=== PATIENT | female | born 1940 | race Caucasian/White ===

== ENCOUNTER 2021-12-30 11:50 | Emergency (ER) | payer MEDICARE, SELFPAY ==
[2021-12-30] VITALS (10 sets, daily range): BP systolic 127–185; BP diastolic 63–99; PULSE 75–82; RESP 14–24; TEMP 37.1; O2SAT 94–99
--- NOTE | 2021-12-30 12:42 | DI.US.S_ITS ---
PROCEDURE: US PERIPH VENOUS LOW EXTREM RT INDICATIONS: PAIN TECHNIQUE: Real-time imaging, as well as color and pulse Doppler interrogation, were performed of the lower extremity deep veins from the inguinal ligament to the popliteal fossa. COMPARISON: None. FINDINGS: Occlusive intraluminal filling defects are noted in right common femoral vein, proximal greater saphenous vein, superficial femoral vein and popliteal vein is seen with absence of flow and poor compressibility. IMPRESSION: Finding is consistent with extensive occlusive deep venous thrombosis throughout visualized right lower extremity veins. Dictated by: Haja Costa M.D. on 12/30/2021 at 12:49 Approved by: Haja Costa M.D. on 12/30/2021 at 12:50
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
[2021-12-30 14:22] LABS: Add Manual Diff / Slide Review NO; Basophils Absolute Auto 100 /uL (0-100); Basophils Percent Auto 0.8 % (0-2); Eosinophils Absolute Auto 100 /uL (0-450); Eosinophils Percent Auto 0.9 % (2-4); Hematocrit 43.7 % (36-46); Lymphocytes Absolute Auto 1300 /uL (1100-4500); Lymphocytes Percent Auto 12.1 % (25-40); Mean Corpuscular Hemoglobin 26.4 PG (26-34); Mean Corpuscular Volume 82.6 fL (80-100); Monocytes Absolute Auto 800 /uL (0-900); Neutrophils Absolute Auto 8200 /uL (1500-7000); Neutrophils Percent Auto 78.2 % (50-75); Platelet Count 244 X10^3/uL (150-400); Red Blood Cell Count 5.29 X10^6/uL (4.0-5.2); Red Cell Distribution Width 13.5 % (11.6-14.8); White Blood Cell Count 10.5 X10^3/uL (4.5-11.0)
[2021-12-30 14:59] LABS: INR 1.1 (0.9-1.3); Prothrombin Time 12.6 SECONDS (10.1-12.7)
[2021-12-30 15:02] LABS: PTT Partial Thromboplastin Tim 34 SECONDS (26.4-36.2)
[2021-12-30 15:06] LABS: Alanine Aminotransferase 11 IU/L (<35); Albumin 3.7 g/dL (3.5-5.0); Albumin Globulin Ratio 1.1 (1.0-2.8); Alkaline Phosphatase 83 U/L (38-126); Aspartate Aminotransferase 23 IU/L (14-36); BUN Creatinine Ratio 18.4 (6-22); Bilirubin Total 0.7 mg/dL (0.2-1.3); Blood Urea Nitrogen 14 mg/dL (7-17); Carbon Dioxide 29 mmol/L (22-32); Chloride 103 mmol/L (98-107); Estimated Glomerular Filt Rate > 60.0 mL/min (>60); Globulin 3.3 g/dL (1.7-4.1); Glucose 89 mg/dL (80-110); HEMOLYSIS < 15 (0-50); Potassium 4.2 mmol/L (3.4-5.1); Sodium 136 mmol/L (137-145)
--- NOTE | 2021-12-30 15:12 | DI.CT.S_ITS ---
PROCEDURE: CT ANGIO CHEST PE PROTOCOL INDICATIONS: blood clot in leg, sob, ekg changes TECHNIQUE: After the administration of intravenous contrast, 2 mm thick sections acquired from the pulmonary apices to the posterior costophrenic angles. 3-dimensional maximum intensity projection (MIP) coronal and sagittal reformats were then acquired through the thorax. For radiation dose reduction, the following was used: automated exposure control, adjustment of mA and/or kV according to patient size. COMPARISON: CR, CHEST 2 VIEW, 03/30/2014, 12:27. [facility], , PERIPH VENOUS LOW EXTREM RT, 12/30/2021, 12:30. FINDINGS: Image quality: Excellent. Pulmonary arteries: Pulmonary arteries are normal in size, and demonstrate no intraluminal filling defects to suggest central pulmonary embolism. Lungs and pleura: There are irregular nodular opacities in right middle lobe and lingula. There are small lung bilaterally nodules. Nodule 1: 3 mm; right lower lobe; series 5 image 111. Nodule 2: 1 mm; left lower lobe; series 5, image 179. Bochdalek hernias in posterior hemidiaphragm with bilaterally. No pleural effusions or pneumothorax. Central and peripheral airways are patent. Mediastinum: Heart size is normal, without pericardial effusion. Mild coronary artery calcification. No mediastinal or hilar adenopathy. 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 Esophagus is normal in caliber. Small hiatal hernia. Bones and chest wall: No suspicious bony lesions. Ribs and thoracic spine appear intact throughout. Thyroid gland is normal. No axillary or supraclavicular adenopathy. Abdomen: Visualized upper abdominal solid organs appear normal in the early arterial phase of enhancement. IMPRESSION: 1. No evidence for pulmonary embolism. 2. Irregular nodular densities in right middle lobe and lingula, most likely infectious or inflammatory etiology. Recommend follow-up to resolution. 3. Small lung nodules bilaterally. Please see below for follow-up recommendations. 4. Type 2 dissection of aorta. 5. Mild coronary artery calcification. The result was discussed with Dr. Taylor. Fleischner Society criteria for SOLID lung nodule followup. Nodule size (mm)Low-risk patientHigh-risk patient?4No follow-up neededFollow-up at 12 mo; if no change, no further follow-up>[id number] CT at 12 mo; if no change, no further follow-up needed.Initial follow-up CT at 6-12 mo, then 18-24 mo if no change. >6-8Initial follow-up CT at 6-12 mo, then 18-24 mo if no change. Initial follow-up CT at 3-6 mo, then 9-12 mo and 24 mo if no change. >8Follow-up CT at 3, 9, 24 mo. Or PET and/or biopsy.Same as for low-risk pts. Dictated by: Tali Gómez M.D. on 12/30/2021 at 16:23 Approved by: Tali Gómez M.D. on 12/30/2021 at 16:45
--- NOTE | 2021-12-30 15:12 | DI.CT.S_ITS ---
PROCEDURE: CT ABDOMEN PELVIS W CON INDICATIONS: Right-sided deep venous thrombosis TECHNIQUE: After the administration of intravenous contrast, axial sections acquired from the lung bases to the pubic symphysis. Coronal and sagittal reformats were performed. For radiation dose reduction, the following was used: automated exposure control, adjustment of mA and/or kV according to patient size. COMPARISON: None. FINDINGS: Image quality: Excellent. Lung bases: Pulmonary scarring noted at both lung bases Heart: No significant findings. ABDOMEN: Liver: Unremarkable. Gallbladder: Several stones noted in the lumen the gallbladder without CT evidence of acute cholecystitis. Biliary ducts: Unremarkable. Pancreas: Unremarkable. Spleen: Unremarkable. Adrenal Glands: Unremarkable. Kidneys and Ureters: Unremarkable. Stomach and Bowel: Stomach, small bowel loops, and colon are unremarkable. Peritoneum: Multiple diverticula arise from the sigmoid and descending colon without evidence of diverticulitis. Moderate fecal debris present throughout the colon. Ventral Wall: No hernias. Abdominal Nodes: No retroperitoneal or mesenteric adenopathy by size criteria. Vessels: There is occlusion of the right common femoral vein extending into the external iliac vein with reconstitution at the common iliac vein. Dense aortic atherosclerotic plaque with calcification noted as well. No aneurysm. Left sided vasculature is patent. PELVIS: Pelvic Organs: Unremarkable. Bladder: Unremarkable. Pelvic Nodes: No enlarged lymph nodes. Miscellaneous: No hernias are seen. Bones: Unremarkable. Degenerative disc disease and arthropathy noted lower lumbar spine IMPRESSION: 1. Deep venous thrombosis involves the right common femoral and external iliac veins with reconstitution at the common iliac vein. 2. Sigmoid and descending colon diverticulosis without diverticulitis. 3. Aortic atherosclerotic disease without aneurysm. Approved by: Brett Hobbs M.D. on 12/30/2021 at 15:43
[2021-12-30 15:32] LABS: COVID19 -Nasal RAPID Negative (Negative)
[2021-12-30 15:38] LABS: Creatine Kinase 45 U/L (30-135)
[2021-12-30 15:48] LABS: NT-proBNP (BNP-Adult 18+) 694 pg/mL (<450)
[2021-12-30 15:51] LABS: Troponin I < 0.012 ng/mL (0.01-0.034)
[2021-12-30 16:15] LABS: Amorphous Sediment Urine 1+; Bacteria Urine None Seen; Culture Indicated Urine Cult Not Indicated; Mucus Urine 1+ (Negative); RBC Urine None Seen (0-5/HPF); WBC Urine None Seen (0-5/HPF)
[2021-12-30] MEDS: RIVAROXABAN 10 MG TABLET 15 MG PO (18:33)
== END 2021-12-30 18:53 | disposition home or self-care (01) ==
PROVIDERS: Emergency Provider Emergency Medicine; PCP Internal Medicine
DX: I82.411 Acute embolism and thrombosis of right femoral vein (principal); I82.421 Acute embolism and thrombosis of right iliac vein; F17.200 Nicotine dependence, unspecified, uncomplicated; Z20.822 Contact with and (suspected) exposure to COVID-19
CPT/HCPCS: 36415; 71275; 74177; 80053; 81003; 81015; 82550; 83880; 84484; 85025; 85610; 85730; 87635; 93005; 93041; 93971; 99284; C9803; Q9967

== ENCOUNTER 2024-01-15 17:23 | Emergency (ER) | payer MEDICARE, SELFPAY ==
[2024-01-15 17:30] VITALS: BP 173/78; PULSE 82; RESP 18; TEMP 37.1; O2SAT 94; BMI 19.3
--- NOTE | 2024-01-15 18:01 | ED_ITS ---
HPI - Epistaxis <Prince Blair PA-C - Last Filed: 01/15/24 18:24> General Chief complaint: Nasal Problem Stated complaint: gushing nose bleeds Time Seen by Provider: 01/15/24 17:58 Source: patient and family Mode of arrival: Ambulatory History of Present Illness HPI Narrative: This is a 83-year-old female presents emergency department due to intermittent nosebleeds. She states she had a nosebleed last night which eventually stopped on its own. She states she has been getting them more intermittently and requested cauterization. Denies any lightheadedness, nausea, vomiting, or any other concerning signs or symptoms. On blood thinners.. Related Data Previous Rx's Medication Instructions Recorded rivaroxaban 15 mg (42)-20 mg (9) See Rx Instructions PO .COMPLEX 12/30/21 tablets in a starter pack #51 ea oxymetazoline 0.05 % nasal mist 2 spray intranasal Q12H PRN nasal 01/15/24 (Afrin (oxymetazoline)) congestion 3 days #15 mL Allergies Allergy/AdvReac Type Severity Reaction Status Date / Time old anestetic they don't Allergy Unknown Uncoded 12/30/21 12:19 use Review of Systems <Prince Blair PA-C - Last Filed: 01/15/24 18:24> Review of Systems Narrative: GENERAL: Denies chills, fatigue, malaise, fever, sweats. HEENT: Reports epistaxis, Denies sinus pain, ear pain, sore throat, difficulty swallowing, dizziness. RESPIRATORY: Denies dyspnea, cough, wheezing, hemoptysis, sputum. CARDIOVASCULAR: Denies chest pain, palpitations, orthopnea, edema, GASTROINTESTINAL: Denies nausea, vomiting, abdominal pain, diarrhea, constipation, melena. : Denies dysuria, frequency, incontinence, hematuria, urinary retention. MUSCULOSKELETAL: denies weakness, joint pain, or bony pain SKIN: Denies rash, skin lesions, or other NEUROLOGIC: Denies weakness, headache, numbness, change in speech, confusion, seizures, incoordination. PSYCHIATRIC: No concerning psychosocial issues. 12 point review of systems is negative except for those stated above Patient History <Prince Blair PA-C - Last Filed: 01/15/24 18:24> Social History (Reviewed 12/30/21 @ 14:41 by RENAE Beck Smoking Status: Current some day smoker Smoking Status: Current some day smoker tobacco type: cigarettes alcohol intake frequency: 0-2 drinks per day Substance Use Type: does not use Exam <VALE Tenorio Last Filed: 01/15/24 18:24> Narrative Exam Narrative: GENERAL: Well-developed patient, in mild distress. HEAD: Atraumatic. Normocephalic. EYES: Pupils equal round and reactive. Extraocular motions intact. No scleral icterus. No injection or drainage. ENT: Nose without bleeding, purulent drainage. Throat without erythema, tonsillar hypertrophy or exudate. Airway patent. Some dried blood to the right [place]. No evidence of any kind of septal hematoma. NECK: Trachea midline. Non tender EXTREMITIES: No edema or joint tenderness. NEURO: AOx3. SKIN: No rash or erythema of visible areas Initial Vital Signs Initial Vital Signs: Vital Signs Temperature 98.8 F 01/15/24 17:30 Pulse Rate 82 01/15/24 17:30 Respiratory Rate 18 01/15/24 17:30 Blood Pressure 173/78 H 01/15/24 17:30 Pulse Oximetry 94 01/15/24 17:30 Oxygen Delivery Method Room Air 01/15/24 17:30 <Nimisha Ashraf DO - Last Filed: 01/16/24 07:07> Initial Vital Signs Initial Vital Signs: Vital Signs Temperature 98.8 F 01/15/24 17:30 Pulse Rate 82 01/15/24 17:30 Respiratory Rate 18 01/15/24 17:30 Blood Pressure 173/78 H 01/15/24 17:30 Pulse Oximetry 94 01/15/24 17:30 Oxygen Delivery Method Room Air 01/15/24 17:30 Course <Prince Blair PA-C - Last Filed: 01/15/24 18:24> Orders Ordered: Discontinued Medications Oxymetazoline HCl (Oxymetazoline Nasal [place] 30 Ml) 2 sprays NASAL NOW ONE Stop: 01/15/24 18:15 Last Admin: 01/15/24 18:28 Dose: 2 sprays Documented By: DRAGAN Vital Signs Vital signs: Vital Signs - 8 hr 01/15/24 17:30 Temperature 98.8 F Pulse Rate 82 Respiratory Rate 18 Blood Pressure 173/78 H Pulse Oximetry 94 Oxygen Delivery Method Room Air <Nimisha Ashraf DO - Last Filed: 01/16/24 07:07> Orders Ordered: Discontinued Medications Oxymetazoline HCl (Oxymetazoline Nasal [place] 30 Ml) 2 sprays NASAL NOW ONE Stop: 01/15/24 18:15 Last Admin: 01/15/24 18:28 Dose: 2 sprays Documented By: DRAGAN Vital Signs Vital signs: Vital Signs - 8 hr 01/15/24 17:30 Temperature 98.8 F Pulse Rate 82 Respiratory Rate 18 Blood Pressure 173/78 H Pulse Oximetry 94 Oxygen Delivery Method Room Air MDM - Epistaxis <Prince Blair PA-C - Last Filed: 01/15/24 18:24> MDM Narrative Medical decision making narrative: ED course: This is a 83-year-old female presents to the emergency department due to intermittent nosebleeds in requesting cauterization. Discussed that we would not be able to perform cauterization here in the emergency department. There was no active nose bleeding at this time. Patient was given Afrin and recommended follow up with the primary care provider to possibly refer to ENT if these nosebleeds continue. No active bleeding to address currently in no rhino rocket given. CC: Nosebleeds Complicating co-morbidities: On blood thinners Data collected from: Previous notes Medical records reviewed: History of DVT. Patient was seen here 2 years ago for possible DVT. DNR DNI but open to medical management. Was discharged on anticoagulation. Rivaroxaban. Differential considered, but not limited to: Epistaxis, septal hematoma Exam documented above, pertinent findings include: No evidence of hematoma Lab Test results independently reviewed as above. Pertinent findings: None obtained Imaging studies independently reviewed: None obtained Scores Used: None MIPS Elements: None Consultations: None Treatments: Afrin Re-evaluations: None Discussion: Discussed plan with the patient was comfortable with the plan Diagnosis: Epistaxis Disposition: see below, along with detailed discharge instructions that have been reviewed with patient as well as indications for ED re-evaluation and additional outpatient follow up Discharge Plan Departure Patient Disposition: Home Clinical Impression: Epistaxis Instructions: DI for Nosebleed Activity Restrictions/Additional Instructions: Thank you for coming to the [facility] Emergency Department today. Please use the Afrin as prescribed. I recommend he speak with the primary care provider for referral to ENT if your nose please continue. Please return to the emergency department if you develop any nosebleeds that you are unable to control at home, or any other concerning signs or symptoms. I hope you feel better soon. Please follow up with your primary care provider within a week if your symptoms continue. If you do not have a primary care provider please contact the [facility] Resource line at [phone]. They will ask some questions about your medical history and help you get set up with a provider in the community. Prescriptions: New Afrin (oxymetazoline) 0.05 % mist 2 spray intranasal Q12H PRN (Reason: nasal congestion) 3 Days Qty: 15 0RF No Action rivaroxaban 15 mg (42)- 20 mg (9) tablets,dose pack See Rx Instructions .ROUTE .COMPLEX Qty: 51 0RF Rx Instructions: Take one-15 mg tablet twice daily for 21 days, then one-20 mg tablet once daily; must take with meal/food Referrals: Elida Massey MD [Primary Care Provider] - Stand Alone Forms: Patient Portal/API ED Sign-out <Nimisha Ashraf DO - Last Filed: 01/16/24 07:07> Cosign ED Attending Cosrodrigoature Attestation: I was available for consultation.
[2024-01-15] MEDS: OXYMETAZOLINE NASAL SPRAY 30 ML 2 SPRAYS NASAL (18:28)
[2024-01-15 18:31] VITALS: BP 163/88; PULSE 77; RESP 20; O2SAT 93
== END 2024-01-15 18:36 | disposition home or self-care (01) ==
PROVIDERS: Emergency Provider Physician Assistant Medical; PCP Internal Medicine
DX: R04.0 Epistaxis (principal); Z79.01 Long term (current) use of anticoagulants
CPT/HCPCS: 99282

== ENCOUNTER → 2024-12-16 11:13 | Outpatient (CLI) | payer MEDICARE, SELFPAY ==
--- NOTE | 2024-12-16 11:15 | DI.RAD.S_ITS ---
PROCEDURE: XR DEXA AXIAL SKELETON INDICATIONS: SCREENING FOR OSTEOPOROSIS COMPARISON: None. FINDINGS: Lumbar Spine: Bone mineral density 0.587 g/cm2, T score -4.2. Left Femoral Neck: Bone mineral density 0.290 g/cm2, T score-5.0. Left Hip: Bone mineral density 0.267 g/cm2, T score -5.5. Fracture Risk Calculation (when applicable): 10-year fracture risk of a major osteoporotic fracture 66 percent and of a hip fracture 61 percent. (T score greater or equal to -1.0 to: NORMAL) (T score from -1.1 to -2.4: OSTEOPENIA) (T score less than or equal to -2.5: OSTEOPOROSIS) IMPRESSION: Osteoporosis. Follow-up guidelines as follows: Osteoporosis: Consider a repeat DEXA and Vertebral Fracture Assessment (VFA) exam in 2 years or sooner if medically necessary, to reassess this patient's status. Osteopenia: Consider a repeat DEXA in 2-3 years to reassess this patient's status, or if there is a new clinical indication. Normal: Consider a repeat DEXA in 5 years or sooner, or if there is a new clinical indication. All treatment decisions require clinical judgment and consideration of individual patient factors, including patient preferences, comorbidities, previous drug use, risk factors not captured in the FRAX model (e.g., frailty, falls, vitamin D deficiency, increased bone turnover, interval significant decline in bone density ) and possible under- or over-estimation of fracture risk by FRAX. In addition, the NOF Guide recommends that FDA-approved medical therapies be considered in postmenopausal women and men age >= 50 years with a: * Hip or vertebral (clinical or morphometric) fracture * T-score of <=-2.5 at the spine or hip * Ten-year fracture probability by FRAX of >= 3% for hip fracture or >=20% for major osteoporotic fracture. Dictated by: Haja Costa M.D. on 12/16/2024 at 14:18 Approved by: Haja Costa M.D. on 12/16/2024 at 14:18
== END ==
PROVIDERS: PCP Internal Medicine; Referring Provider Internal Medicine; Visit Provider Internal Medicine
DX: M81.0 Age-related osteoporosis without current pathological fracture (principal)
CPT/HCPCS: 77080

== ENCOUNTER 2025-04-27 09:36 | Inpatient (IN) | payer MEDICARE, SELFPAY ==
[2025-04-27] VITALS (19 sets, daily range): BP systolic 144–206; BP diastolic 78–93; PULSE 83–104; RESP 16–45; TEMP 36.5–36.9; O2SAT 90–98; BMI 18.5
--- NOTE | 2025-04-27 09:53 | ED_ITS ---
HPI - General Adult General Chief complaint: Abdominal Pain Stated complaint: Vomiting Time Seen by Provider: 04/27/25 09:52 History of Present Illness HPI narrative: 85-year-old woman currently in an adult family home, carrying heart facility with a history of dementia. She is accompanied by her daughter today apparently began vomiting yesterday. She does have a history of chronic diarrhea earliest loose stools. Patient states that there is something hurting down under near the baby (post hysterectomy many years ago), her dementia is significant enough that her contribution to history is minimal. She is holding an emesis bag but alert and trying to cooperate. She is accompanied by her daughter who provides most of the history. No recent fevers chills. No chest pain palpitations Related Data Previous Rx's ?Medication ?Instructions ?Recorded rivaroxaban 15 mg (42)-20 mg (9) See Rx Instructions P O .COMPLEX 12/30/21 tablets in a starter pack #51 ea Allergies Allergy/AdvReac Type Severity Reaction Status Date / Time old anestetic they don't Allergy Unknown Uncoded 12/30/21 12:19 use Review of Systems Review of Systems Narrative: Pertinent positive and negative findings as per HPI Patient History tobacco type: cigarettes alcohol intake frequency: 0-2 drinks per day Exam Initial Vital Signs Initial Vital Signs: Vital Signs Pulse Rate 104 H 04/27/25 09:39 Blood Pressure 166/93 H 04/27/25 09:39 General: Frail-appearing, holding an emesis basin, otherwise smiling and interactive HEENT: Moist mucous membranes, normal sclera with reactive pupils, Respiratory: Lungs are clear to auscultation, no wheezing no rales no rhonchi. Full and symmetrical air movement Cardiac: Regular rate and rhythm no murmurs no bruits Abdomen: Distended in the lower abdomen without significant tenderness, no pain behaviors, no flank pain Skin: Warm and dry, no rashes Neurologic: Grossly neurologically intact with no obvious asymmetries or abnormalities Extremities: No trauma, no swelling Psych: Cooperative, appropriate insight and affect Course Orders Ordered: ED Orders 04/27/25 09:44 EKG-12 Lead Stat 04/27/25 10:20 Complete Blood Count AUTO DIFF Stat 04/27/25 10:27 BNP [NT-proBNP (BNP-Adult 18+)] Stat Trop I [Troponin I] Stat 04/27/25 11:24 Ictotest Urine Stat Urine Microscopic Stat 04/27/25 11:53 Comprehensive Metabolic Panel Stat Lipase Stat 04/27/25 12:06 CT abdomen pelvis wo con Stat Nitroglycerin (Nitroglycerin 0.4 Mg Sl Tab) 0.4 mg SL [id number] PRN PRN Reason: Chest Pain Ondansetron HCl (Ondansetron 4 Mg/2 Ml Inj) 4 mg IV NOW PRN PRN Reason: Nausea And Vomiting Ondansetron HCl (Ondansetron 4 Mg Odt) 4 mg PO NOW PRN PRN Reason: Nausea And Vomiting Discontinued Medications Sodium Chloride (Normal Saline 0.9%) 1,000 mls @ 1,000 mls/hr IV BOLUS ONE Stop: 04/27/25 13:05 Last Infusion: 04/27/25 14:47 Dose: Infused Documented By: Admin: 04/27/25 12:09 Dose: 1,000 mls/hr Documented By: MARK Vital Signs Vital signs: Vital Signs - 8 hr 04/27/25 09:39 04/27/25 09:39 04/27/25 09:40 Temperature 98.4 F Pulse Rate 104 H 101 H Respiratory Rate 16 Blood Pressure 166/93 H 166/93 H Pulse Oximetry 90 L Oxygen Delivery Method Room Air 04/27/25 10:00 04/27/25 10:30 04/27/25 11:00 Temperature Pulse Rate 93 H 96 H 90 Respiratory Rate Blood Pressure Pulse Oximetry 96 94 98 Oxygen Delivery Method Room Air 04/27/25 11:30 04/27/25 12:00 04/27/25 12:30 Temperature Pulse Rate 96 H 93 H 94 H Respiratory Rate Blood Pressure Pulse Oximetry 94 95 96 Oxygen Delivery Method 04/27/25 12:50 04/27/25 12:50 04/27/25 13:00 Temperature Pulse Rate 94 H 91 H Respiratory Rate 22 Blood Pressure 182/79 H Pulse Oximetry 95 95 Oxygen Delivery Method 04/27/25 13:00 04/27/25 13:30 04/27/25 13:30 Temperature Pulse Rate 92 H Respiratory Rate 21 Blood Pressure 178/79 H 177/82 H Pulse Oximetry 93 Oxygen Delivery Method Medical Decision Making Lab Data 04/27/25 10:20 04/27/25 11:53 Labs: Lab Results 04/27/25 04/27/25 04/27/25 Range/Units 10:20 10:27 11:24 WBC 17.0 H (4.5-11.0) X10^3/uL RBC 6.06 H (4.0-5.2) X10^6/uL Hgb 16.5 H (12.0-16.0) g/dL Hct 49.9 H (36-46) % MCV 82.3 (80-100) fL MCH 27.2 (26-34) PG MCHC 33.1 (30-36) % RDW 15.2 H (11.6-14.8) % Plt Count 198 (150-400) X10^3/uL Neut % (Auto) 87.9 H (50-75) % Lymph % (Auto) 6.5 L (25-40) % Bond % (Auto) 5.0 (3-14) % Eos % (Auto) 0.1 L (2-4) % Baso % (Auto) 0.5 (0-2) % Neut # (Auto) 19852 H (0989-6142) /uL Lymph # (Auto) 1100 (4710-1921) /uL Bond # (Auto) 900 (0-900) /uL Eos # (Auto) 0 (0-450) /uL Baso # (Auto) 100 (0-100) /uL Sodium (137-145) mmol/L Potassium (3.4-5.1) mmol/L Chloride (98-107) mmol/L Carbon Dioxide (22-32) mmol/L BUN (7-17) mg/dL Creatinine (0.52-1.04) mg/dL Estimated GFR (>60) mL/min BUN/Creatinine Ratio (6-22) Glucose (70-99) mg/dL Calcium (8.4-10.2) mg/dL Total Bilirubin (0.2-1.3) mg/dL AST (14-36) IU/L ALT (<35) IU/L Alkaline Phosphatase (38-126) U/L Troponin I 0.033 (0.01-0.034) ng/mL NT-Pro-B Natriuret Pep 3510 H (<450) pg/mL Total Protein (6.3-8.2) g/dL Albumin (3.5-5.0) g/dL Globulin (1.7-4.1) g/dL Albumin/Globulin Ratio (1.0-2.8) Lipase (23-300) U/L Ur Bilirubin Confirm Negative (Negative) Urine RBC 1-5/hpf (0-5/HPF) Urine WBC 1-5/hpf (0-5/HPF) Ur Squamous Epith Cells 1-5 /hpf (0-5/HPF) Urine Bacteria Occasional (0-1) (None) Hyaline Casts 1-5/lpf (None) Ur Culture Indicated? Cult not indicated Vol Urine Centrifuged 10ml (spun) 04/27/25 Range/Units 11:53 WBC (4.5-11.0) X10^3/uL RBC (4.0-5.2) X10^6/uL Hgb (12.0-16.0) g/dL Hct (36-46) % MCV (80-100) fL MCH (26-34) PG MCHC (30-36) % RDW (11.6-14.8) % Plt Count (150-400) X10^3/uL Neut % (Auto) (50-75) % Lymph % (Auto) (25-40) % Bond % (Auto) (3-14) % Eos % (Auto) (2-4) % Baso % (Auto) (0-2) % Neut # (Auto) (2833-3486) /uL Lymph # (Auto) (3444-6852) /uL Bond # (Auto) (0-900) /uL Eos # (Auto) (0-450) /uL Baso # (Auto) (0-100) /uL Sodium 139 (137-145) mmol/L Potassium 5.5 H (3.4-5.1) mmol/L Chloride 96 L (98-107) mmol/L Carbon Dioxide 32 (22-32) mmol/L BUN 38 H (7-17) mg/dL Creatinine 1.58 H (0.52-1.04) mg/dL Estimated GFR 32 L (>60) mL/min BUN/Creatinine Ratio 24.1 H (6-22) Glucose 144 H (70-99) mg/dL Calcium 9.8 (8.4-10.2) mg/dL Total Bilirubin 0.9 (0.2-1.3) mg/dL AST 40 H (14-36) IU/L ALT 21 (<35) IU/L Alkaline Phosphatase 89 (38-126) U/L Troponin I (0.01-0.034) ng/mL NT-Pro-B Natriuret Pep (<450) pg/mL Total Protein 8.3 H (6.3-8.2) g/dL Albumin 4.7 (3.5-5.0) g/dL Globulin 3.6 (1.7-4.1) g/dL Albumin/Globulin Ratio 1.3 (1.0-2.8) Lipase 88 (23-300) U/L Ur Bilirubin Confirm (Negative) Urine RBC (0-5/HPF) Urine WBC (0-5/HPF) Ur Squamous Epith Cells (0-5/HPF) Urine Bacteria (None) Hyaline Casts (None) Ur Culture Indicated? Vol Urine Centrifuged Urine Dip Bedside Urine Glucose Negative Bedside Urine Bilirubin ++ 2 Bedside Urine Ketone - Negative Urine Specific Helen 1.030 Bedside Urine Occult Blood + Bedside Urine pH 5.5 Bedside Urine Protein +/- 15 Bedside Urine Urobilinogen - Negative Bedside Urine Nitrite - Negative Bedside Urine Leukocytes - Negative Esterase Point of care testing: Urine Dip Bedside Urine Glucose Negative Bedside Urine Bilirubin ++ 2 Bedside Urine Ketone - Negative Urine Specific Helen 1.030 Bedside Urine Occult Blood + Bedside Urine pH 5.5 Bedside Urine Protein +/- 15 Bedside Urine Urobilinogen - Negative Bedside Urine Nitrite - Negative Bedside Urine Leukocytes - Negative Esterase Imaging Data CT scan - abdomen/pelvis: Radiologist's Impression: PROCEDURE: CT ABDOMEN PELVIS WO CON INDICATIONS: distention, vomiting TECHNIQUE: CT of the abdomen and pelvis was obtained without intravenous contrast. Coronal and sagittal reformats were performed. For radiation dose reduction, the following was used: automated exposure control, adjustment of mA and/or kV according to patient size. COMPARISON: [facility], CT, CT ABDOMEN PELVIS W CON, 12/30/2021, 15:18. FINDINGS: Image quality: Diagnostic. Lower Chest: No significant findings. ABDOMEN: Liver: No contour-deforming mass. Gallbladder: Numerous layering gallstones are seen. No additional CT findings of cholecystitis are seen. Biliary ducts: No biliary dilation. Pancreas: No ductal dilation. Spleen: Size is within normal limits. Adrenal Glands: No adrenal nodules. Kidneys and Ureters: No hydronephrosis. No contour-deforming mass. Stomach and Bowel: The proximal loops of small bowel are abnormally dilated at 3.7 cm. The distal small bowel loops are decompressed. A transition point can be seen within the mid abdomen just to the left of the midline, as on series 4, image 24. There is a moderate to prominent volume of stool seen within the colon. Colonic diverticulosis is seen, without findings of active diverticulitis. Peritoneum: No abnormal intraperitoneal fluid. No free air. Ventral Wall: No significant hernia. Abdominal Nodes: No retroperitoneal or mesenteric adenopathy by size criteria. Vessels: Aorta and inferior vena cava are normal in size. Atherosclerotic calcification is noted. Mac PELVIS: Pelvic Organs: Unremarkable. Bladder: Unremarkable. Pelvic Nodes: No enlarged lymph nodes. Miscellaneous: No inguinal hernias are seen. Bones: No aggressive osseous abnormality. Age-appropriate bony degenerative changes are seen. IMPRESSION: Small-bowel obstruction, with a transition point seen within the mid abdomen, just to the left of the midline. There is a moderate to prominent volume of stool seen within the rectum. Additional findings: Gallstones Diverticulosis, without active diverticulitis Dictated by: Rambo Sims M.D. on 04/27/2025 at 12:19 MDM Narrative Medical decision making narrative: CC: Vomiting for almost 24 hours Complicating co-morbidities: Dementia, chronic loose stools occasionally uses Imodium Data collected from: patient, daughter Social determinants of health that may influence the patients condition: Lives in a group family home Differential considered: Gastroenteritis, bowel obstruction, sepsis, severe constipation Exam documented above, pertinent findings include: She is frail, abdomen is distended but not tender. No localizing symptoms Bladder scan has around 250 cc Lab Test results independently reviewed as above. Pertinent findings: CBC shows leukocytosis at 17,000 with left shift. Hemoglobin is 16.5, hematocrit is 49.9 suggesting moderate volume contraction, Chemistries are notable for acute kidney injury creatinine at 1.58, comparison was from 3 years ago. Potassium slightly elevated at 5.5 ProBNP slightly elevated at 3500 Troponin is undetectable Lipase is unremarkable Independently reviewed EKG: EKG shows sinus rhythm, short ND interval, ST depression in flipped T-waves anterolaterally concern for ischemia considered. She is not meeting criteria for STEMI Imaging studies independently reviewed: CT scan of the abdomen shows Small-bowel obstruction, with a transition point seen within the mid abdomen, just to the left of the midline. Consultations: General surgery, Dr. Butts Treatments: Fluids, antibiotics are initiated, Zosyn with concern for bowel source of infection, Valentin She seems dehydrated, a L of fluid is given, increased BNP but no clinical signs or symptoms of congestive heart failure Re-evaluations: Discussion with patient's daughter, Shazia Nguyen, . Patient has filled out a POLST form, I do not have it immediately available but it indicates she is DNR and comfort measures Discussion: 85-year-old woman with dementia vomiting since last night CT scan shows small bowel obstruction with fairly obvious transition point. Significant dehydration with hemoconcentration, elevated white blood cell count unclear if this is due to dehydration or infection. Antibiotics have been initiated. She has gotten fluids and pain medications. Reviewed findings and concerns with her daughter. She is DNR DNI and if symptoms do not resolve spontaneously likely would not want to proceed with surgical intervention but this will need to be discussed when that decision point is required. Findings, concerns including concern for finding that may need surgery that would not be survival any above it and reviewed with her daughter who understands. Findings discussed with Dr. Gaviria and patient will be admitted Discharge Plan Departure Patient Disposition: Admitted As Inpatient Clinical Impression: Complete small bowel obstruction, Acute dehydration Admit Date/Time: 04/27/25 16:06 Admit Provider: John Gaviria
--- NOTE | 2025-04-27 10:28 | EKG_ITS ---
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
[2025-04-27 10:51] LABS: Add Manual Diff / Slide Review NO; Basophils Absolute Auto 100 /uL (0-100); Basophils Percent Auto 0.5 % (0-2); Eosinophils Absolute Auto 0 /uL (0-450); Eosinophils Percent Auto 0.1 % (2-4); Hematocrit 49.9 % (36-46); Hemoglobin 16.5 g/dL (12.0-16.0); Lymphocytes Absolute Auto 1100 /uL (1100-4500); Lymphocytes Percent Auto 6.5 % (25-40); Mean Corpuscular HGB Conc 33.1 % (30-36); Mean Corpuscular Hemoglobin 27.2 PG (26-34); Mean Corpuscular Volume 82.3 fL (80-100); Monocytes Absolute Auto 900 /uL (0-900); Neutrophils Absolute Auto 14900 /uL (1500-7000); Neutrophils Percent Auto 87.9 % (50-75); Platelet Count 198 X10^3/uL (150-400); Red Blood Cell Count 6.06 X10^6/uL (4.0-5.2); Red Cell Distribution Width 15.2 % (11.6-14.8)
--- NOTE | 2025-04-27 12:06 | DI.CT.S_ITS ---
PROCEDURE: CT ABDOMEN PELVIS WO CON INDICATIONS: distention, vomiting TECHNIQUE: CT of the abdomen and pelvis was obtained without intravenous contrast. Coronal and sagittal reformats were performed. For radiation dose reduction, the following was used: automated exposure control, adjustment of mA and/or kV according to patient size. COMPARISON: [facility], CT, CT ABDOMEN PELVIS W CON, 12/30/2021, 15:18. FINDINGS: Image quality: Diagnostic. Lower Chest: No significant findings. ABDOMEN: Liver: No contour-deforming mass. Gallbladder: Numerous layering gallstones are seen. No additional CT findings of cholecystitis are seen. Biliary ducts: No biliary dilation. Pancreas: No ductal dilation. Spleen: Size is within normal limits. Adrenal Glands: No adrenal nodules. Kidneys and Ureters: No hydronephrosis. No contour-deforming mass. Stomach and Bowel: The proximal loops of small bowel are abnormally dilated at 3.7 cm. The distal small bowel loops are decompressed. A transition point can be seen within the mid abdomen just to the left of the midline, as on series 4, image 24. There is a moderate to prominent volume of stool seen within the colon. Colonic diverticulosis is seen, without findings of active diverticulitis. Peritoneum: No abnormal intraperitoneal fluid. No free air. Ventral Wall: No significant hernia. Abdominal Nodes: No retroperitoneal or mesenteric adenopathy by size criteria. Vessels: Aorta and inferior vena cava are normal in size. Atherosclerotic calcification is noted. Mac PELVIS: Pelvic Organs: Unremarkable. Bladder: Unremarkable. Pelvic Nodes: No enlarged lymph nodes. Miscellaneous: No inguinal hernias are seen. Bones: No aggressive osseous abnormality. Age-appropriate bony degenerative changes are seen. IMPRESSION: Small-bowel obstruction, with a transition point seen within the mid abdomen, just to the left of the midline. There is a moderate to prominent volume of stool seen within the rectum. Additional findings: Gallstones Diverticulosis, without active diverticulitis Dictated by: Rambo Sims M.D. on 04/27/2025 at 12:19 Approved by: Rambo Sims M.D. on 04/27/2025 at 12:21
[2025-04-27] MEDS: SODIUM CHLORIDE 0.9% 1,000 ML 1000 ML IV (12:09)
[2025-04-27 12:19] LABS: Alanine Aminotransferase 21 IU/L (<35); Albumin 4.7 g/dL (3.5-5.0); Albumin Globulin Ratio 1.3 (1.0-2.8); Alkaline Phosphatase 89 U/L (38-126); Aspartate Aminotransferase 40 IU/L (14-36); BUN Creatinine Ratio 24.1 (6-22); Bilirubin Total 0.9 mg/dL (0.2-1.3); Blood Urea Nitrogen 38 mg/dL (7-17); Calcium 9.8 mg/dL (8.4-10.2); Carbon Dioxide 32 mmol/L (22-32); Chloride 96 mmol/L (98-107); Estimated Glomerular Filt Rate 32 mL/min (>60); Globulin 3.6 g/dL (1.7-4.1); Glucose 144 mg/dL (70-99); HEMOLYSIS 28 (0-50); Lipase 88 U/L (23-300); Sodium 139 mmol/L (137-145); Total Protein 8.3 g/dL (6.3-8.2)
[2025-04-27 12:20] LABS: Potassium 5.5 mmol/L (3.4-5.1)
[2025-04-27 12:25] LABS: NT-proBNP (BNP-Adult 18+) 3510 pg/mL (<450); Troponin I 0.033 ng/mL (0.01-0.034)
[2025-04-27 13:03] LABS: Ictotest Urine Negative (Negative); Urine Volume 10mL (spun)
--- NOTE | 2025-04-27 13:11 | PC.NURSE ---
The patient is alert to verbal and pain but is confused at baseline due to dementia. Patient states that she is having a baby. Patient was asked if the baby is hurting her stomach. she stated yes. the pt was asked to point to where her baby was hurting her. She pointed to her right lower quadrant. the pt was tender on palpation on her RLQ. The patient was asked if the pain was making her feel like she had to pee or poop and she stated it was making her feel like she had to poop.
[2025-04-27 13:12] LABS: RBC Urine 1-5/HPF (0-5/HPF)
[2025-04-27 13:13] LABS: Bacteria Urine Occasional (0-1); Hyaline Casts Urine 1-5/LPF; Squamous Epithelial Cell Urine 1-5 /HPF (0-5/HPF); WBC Urine 1-5/HPF (0-5/HPF)
[2025-04-27 13:14] LABS: Culture Indicated Urine Cult Not Indicated
[2025-04-27] MEDS: PIPERACILLIN/TAZO 4.5 GM in SODIUM CHLORIDE 0.9% 100 ML IV (15:40)
--- NOTE | 2025-04-27 16:21 | P.HP_ITS ---
History of Present Illness History of Present Illness Date Patient Seen: 04/27/25 Chief complaint: Vomiting Narrative: SBO: The patient was a pleasant 85-year-old female who resides at an adult family home. She was significant dementia. History is provided by her daughter and power of regulator mechanic. The patient was DNR. The patient was said to have began vomiting yesterday. She declined evaluation yesterday and vomiting was persistent today. Ultimately she did agree to come to the ER where she was found to have evidence of a small-bowel obstruction by CT scan. The patient has a improved since her arrival. She had a small bowel movement. Her abdomen is less distended now. She was no history of bowel obstruction but does have a distant history of hysterectomy. The patient is significantly impaired with regard to cognition and can not provide any reliable answers to questions. She also had an abnormal ECG with T-wave changes as well as elevated troponin. Her daughter adds that she was DNR, DNI. Also that she would she was comfort care over surgical intervention. She was, however okay with a trial at a nasogastric tube if the patient worsens overnight. Some bruising was noted in the patient's inner thighs and bottom as well as perineal area. The patient was on chronic Eliquis. The daughter is aware of these findings and has had no concerns to date from the facility. We will reach out to the facility tomorrow with social work's assistance to follow up on these findings. The patient's daughter will also inquire of the facility if they had noticed any bruising or if anything else has been happening. [facility] Social History Smoking Status: Former smoker alcohol intake: current Meds Home Medications and Allergies Home Medications ?Medication ?Instructions ?Recorded ?Confirmed ?Type rivaroxaban 15 mg (42)-20 mg (9) See Rx Instructions P O .COMPLEX 12/30/21 Rx tablets in a starter pack #51 ea Allergies Allergy/AdvReac Type Severity Reaction Status Date / Time old anestetic they don't Allergy Unknown Uncoded 12/30/21 12:19 use Review of Systems Review of Systems Narrative: Review of systems not really obtainable due to her significant cognitive impairment. Exam Vital Signs (past 8 hours): - 04/27/25 09:39 04/27/25 09:39 04/27/25 09:40 Temperature 98.4 F Pulse Rate 104 H 101 H Respiratory Rate 16 Blood Pressure 166/93 H 166/93 H Pulse Oximetry 90 L Oxygen Delivery Method Room Air 04/27/25 10:00 04/27/25 10:30 04/27/25 11:00 Temperature Pulse Rate 93 H 96 H 90 Respiratory Rate Blood Pressure Pulse Oximetry 96 94 98 Oxygen Delivery Method Room Air 04/27/25 11:30 04/27/25 12:00 04/27/25 12:30 Temperature Pulse Rate 96 H 93 H 94 H Respiratory Rate Blood Pressure Pulse Oximetry 94 95 96 Oxygen Delivery Method 04/27/25 12:50 04/27/25 12:50 04/27/25 13:00 Temperature Pulse Rate 94 H 91 H Respiratory Rate 22 Blood Pressure 182/79 H Pulse Oximetry 95 95 Oxygen Delivery Method 04/27/25 13:00 04/27/25 13:30 04/27/25 13:30 Temperature Pulse Rate 92 H Respiratory Rate 21 Blood Pressure 178/79 H 177/82 H Pulse Oximetry 93 Oxygen Delivery Method 04/27/25 14:00 04/27/25 14:00 04/27/25 14:30 Temperature Pulse Rate 91 H Respiratory Rate 29 H Blood Pressure 175/78 H 199/85 H Pulse Oximetry 92 Oxygen Delivery Method 04/27/25 14:30 04/27/25 14:54 04/27/25 14:54 Temperature Pulse Rate 93 H 93 H Respiratory Rate 36 H 45 H Blood Pressure 200/93 H Pulse Oximetry 92 93 Oxygen Delivery Method 04/27/25 15:00 04/27/25 15:00 04/27/25 15:30 Temperature Pulse Rate 90 Respiratory Rate 44 H Blood Pressure 199/92 H 206/93 H Pulse Oximetry 97 Oxygen Delivery Method 04/27/25 15:30 04/27/25 16:00 04/27/25 16:00 Temperature Pulse Rate 85 83 Respiratory Rate 35 H 41 H Blood Pressure 188/88 H Pulse Oximetry 98 96 Oxygen Delivery Method Oxygen Delivery Method Room Air Narrative Exam Narrative: NAD, alert and disoriented, fluent speech, calm. She was significant cognitive impairment. Normocephalic skull, EOMI, anicteric sclera, symmetric pupils. Oropharynx unremarkable, no droop. Neck supple, midline trachea, no adenopathy. Lungs clear, normal rate and effort. Heart regular, no murmur gallop or rub. Abdomen is soft, non distended and non tender. There is no residual distention or tenderness with her exam. Extremities are free of edema. Skin is free of rash or lesions. She does have some bruising on the posterior aspect of her inner thighs, perineum, and buttocks. There was no evidence of external vaginal trauma. Joints are not swollen or deformed. Judgment appears to be abnormal. Objective ECG Impression: Sinus rhythm with short [place] ST & T wave abnormality, consider inferior ischemia ST & T wave abnormality, consider anterolateral ischemia Imaging CT scan - abdomen: Radiologist's impression: Small-bowel obstruction, with a transition point seen within the mid abdomen, just to the left of the midline. There is a moderate to prominent volume of stool seen within the rectum. Labs 04/27/25 10:20 04/27/25 11:53 Labs: Laboratory Results - last 24 hr 04/27/25 04/27/25 04/27/25 10:20 10:27 11:24 WBC 17.0 H RBC 6.06 H Hgb 16.5 H Hct 49.9 H MCV 82.3 MCH 27.2 MCHC 33.1 RDW 15.2 H Plt Count 198 Neut % (Auto) 87.9 H Lymph % (Auto) 6.5 L [place] % (Auto) 5.0 Eos % (Auto) 0.1 L Baso % (Auto) 0.5 Neut # (Auto) 79392 H Lymph # (Auto) 1100 [place] # (Auto) 900 Eos # (Auto) 0 Baso # (Auto) 100 Sodium Potassium Chloride Carbon Dioxide BUN Creatinine Estimated GFR BUN/Creatinine Ratio Glucose Calcium Total Bilirubin AST ALT Alkaline Phosphatase Troponin I 0.033 NT-Pro-B Natriuret Pep 3510 H Total Protein Albumin Globulin Albumin/Globulin Ratio Lipase Ur Bilirubin Confirm Negative Urine RBC 1-5/hpf Urine WBC 1-5/hpf Ur Squamous Epith Cells 1-5 /hpf Urine Bacteria Occasional (0-1) Hyaline Casts 1-5/lpf Ur Culture Indicated? Cult not indicated Vol Urine Centrifuged 10ml (spun) 04/27/25 11:53 WBC RBC Hgb Hct MCV MCH MCHC RDW Plt Count Neut % (Auto) Lymph % (Auto) [place] % (Auto) Eos % (Auto) Baso % (Auto) Neut # (Auto) Lymph # (Auto) [place] # (Auto) Eos # (Auto) Baso # (Auto) Sodium 139 Potassium 5.5 H Chloride 96 L Carbon Dioxide 32 BUN 38 H Creatinine 1.58 H Estimated GFR 32 L BUN/Creatinine Ratio 24.1 H Glucose 144 H Calcium 9.8 Total Bilirubin 0.9 AST 40 H ALT 21 Alkaline Phosphatase 89 Troponin I NT-Pro-B Natriuret Pep Total Protein 8.3 H Albumin 4.7 Globulin 3.6 Albumin/Globulin Ratio 1.3 Lipase 88 Ur Bilirubin Confirm Urine RBC Urine WBC Ur Squamous Epith Cells Urine Bacteria Hyaline Casts Ur Culture Indicated? Vol Urine Centrifuged Assessment & Plan Assessment & Plan narrative: 1. Small bowel obstruction, present on admission and active 2. Acute kidney injury with creatinine 1.58, present on admission and active. 3. Hyperkalemia, present on admission and active. 4. Leukocytosis, present on admission and active. 5. Abnormal ECG and elevated troponin of 0.033, present on admission and active. 6. Bruising of the inner thighs and buttocks with a history of anticoagulation, present on admission and active. Plan: -conservative treatment of bowel obstruction with IV fluids and analgesics. A nasogastric tube would be acceptable if she tolerated this with 1 attempt at placement. The patient was not a surgical candidate and her daughter indicates that if she fails to improve she would go to comfort care. -her mild PERCY and hyperkalemia will be treated with IV fluids. -her elevated troponin abnormal ECG we will not be investigated further with the exception of a repeat troponin in the morning. -we will investigate the history of her bruising with her facility tomorrow. DNR DNI. Anticipate 2 midnights in the hospital, supports inpatient status. She was being treated for a bowel obstruction, acute kidney injury with hyperkalemia, and demand ischemia versus NSTEMI. Her daughter is her power of regulator mechanic for healthcare. She also has a son. Time-Based Coding :: 40 min spent with patient and on the chart (including review of chart, obtaining history, exam, reviewing outside data, placing orders, documenting exam and treatment plan, and counseling patient) on 04/27. Quality MIPS - Admit I confirm the patient?s Advance Care Plan is present, Code status is documented, Surrogate decision maker is in patient?s record [If Yes, STOP here]: Yes The patient?s Advance Care plan is not present because I confirmed today that the patient does not wish or was not able to name a surrogate decision maker or provide an Advance Care Plan.: Yes
[2025-04-27] MEDS: ONDANSETRON 4 MG/2 ML INJ IV (16:39)
[2025-04-27] MEDS: HYDROMORPHONE 0.5 MG INJ IV (16:41)
[2025-04-27] MEDS: SODIUM CHLORIDE 0.9% 1,000 ML 100 ML IV (17:00)
--- NOTE | 2025-04-27 18:04 | PC.NURSE ---
Patient came up from ED at 1645. Patient's daughter Shazia at bedside. Patient alert to self and place. Able to follow commands. She states she thinks she's at the hospital because I'm having a baby. She states pain in her LLQ of stomach. Denies nausea. While doing the skin assessment, this RN and Juan RN noted substantial purple bruising all over the patient's bottom, labia majora, and inner thighs. No open skin. See wound photos in wound note. Placed mepilex with border on sacrum. Applied zinc cream to the rest of bruising. Patient's daughter stated she has had pressure injuries in the past from prolonged sitting, but that was mainly on her coccyx. Notified MD Gaviria so he could order social work consult and further investigation. This RN also called down to ED to ask if they noted the bruising or if the patient or her daughter had said anything related to it. ROMIE Miller in ED stated he didn't notice the bruising, but did not do a full skin check. Notified RN coordinator Gaviota who stated he would call the ED drug abuse social worker. Will continue to monitor.
--- NOTE | 2025-04-27 18:24 | PC.NURSE ---
Day shift: This sql report writer went online and filed a SA report with [place] state APS at approx this time. Report confirmation number is [id number]. WHEEL SHOP SUPERVISOR in ED informed. Primary RN informed. Dr Gaviria informed as well.
[2025-04-27] MEDS: HEPARIN 5,000 UNIT/ML VIAL 5000 UNIT SUBCUT (20:32)
[2025-04-28 02:30] VITALS: BP 112/62; PULSE 76; RESP 20; TEMP 36.5; O2SAT 95
[2025-04-28] MEDS: HYDROMORPHONE 0.5 MG INJ IV ×2 (02:30→06:18)
[2025-04-28] MEDS: SODIUM CHLORIDE 0.9% 1,000 ML 100 ML IV ×3 (02:31→21:07)
[2025-04-28 06:10] LABS: BUN Creatinine Ratio 31.5 (6-22); Blood Urea Nitrogen 29 mg/dL (7-17); Carbon Dioxide 25 mmol/L (22-32); Chloride 112 mmol/L (98-107); Estimated Glomerular Filt Rate > 60 mL/min (>60); Glucose 84 mg/dL (70-99); HEMOLYSIS < 15 (0-50); Potassium 4.4 mmol/L (3.4-5.1); Sodium 140 mmol/L (137-145)
[2025-04-28 06:22] LABS: Troponin I 0.103 ng/mL (0.01-0.034)
--- NOTE | 2025-04-28 07:23 | PM.PN.1 ---
Subjective Subjective Interval history: S: She still has abdomen pain. Exam Vital Signs (past 8 hours): - 04/28/25 02:30 Temperature 97.7 F Pulse Rate 76 Respiratory Rate 20 Blood Pressure 112/62 Pulse Oximetry 95 Oxygen Flow Rate 0.5 Oxygen Delivery Method Nasal Cannula Oxygen Flow Rate 0.5 Narrative Exam Narrative: NAD, alert and oriented. Fluent speech. Lungs are clear, normal rate and effort. Heart is regular, no murmur gallop or rub. Abdomen is soft, distended. Not tender. Extremities are free of edema. Objective Labs 04/27/25 10:20 04/28/25 05:10 Labs: Laboratory Results - last 24 hr 04/27/25 04/27/25 04/27/25 10:20 10:27 11:24 WBC 17.0 H RBC 6.06 H Hgb 16.5 H Hct 49.9 H MCV 82.3 MCH 27.2 MCHC 33.1 RDW 15.2 H Plt Count 198 Neut % (Auto) 87.9 H Lymph % (Auto) 6.[address] [place] % (Auto) 5.0 Eos % (Auto) 0.1 L Baso % (Auto) 0.5 Neut # (Auto) 14030 H Lymph # (Auto) 1100 [place] # (Auto) 900 Eos # (Auto) 0 Baso # (Auto) 100 Sodium Potassium Chloride Carbon Dioxide BUN Creatinine Estimated GFR BUN/Creatinine Ratio Glucose Calcium Total Bilirubin AST ALT Alkaline Phosphatase Troponin I 0.033 NT-Pro-B Natriuret Pep 3510 H Total Protein Albumin Globulin Albumin/Globulin Ratio Lipase Ur Bilirubin Confirm Negative Urine RBC 1-5/hpf Urine WBC 1-5/hpf Ur Squamous Epith Cells 1-5 /hpf Urine Bacteria Occasional (0-1) Hyaline Casts 1-5/lpf Ur Culture Indicated? Cult not indicated Vol Urine Centrifuged 10ml (spun) 04/27/25 04/28/25 11:53 05:10 WBC RBC Hgb Hct MCV MCH MCHC RDW Plt Count Neut % (Auto) Lymph % (Auto) [place] % (Auto) Eos % (Auto) Baso % (Auto) Neut # (Auto) Lymph # (Auto) [place] # (Auto) Eos # (Auto) Baso # (Auto) Sodium 139 140 Potassium 5.5 H 4.4 Chloride 96 L 112 H Carbon Dioxide 32 25 BUN 38 H 29 H Creatinine 1.58 H 0.92 Estimated GFR 32 L > 60 BUN/Creatinine Ratio 24.1 H 31.5 H Glucose 144 H 84 Calcium 9.8 8.0 L Total Bilirubin 0.9 AST 40 H ALT 21 Alkaline Phosphatase 89 Troponin I 0.103 H NT-Pro-B Natriuret Pep Total Protein 8.3 H Albumin 4.7 Globulin 3.6 Albumin/Globulin Ratio 1.3 Lipase 88 Ur Bilirubin Confirm Urine RBC Urine WBC Ur Squamous Epith Cells Urine Bacteria Hyaline Casts Ur Culture Indicated? Vol Urine Centrifuged [facility] Social History Smoking Status: Former smoker alcohol intake: current Assessment & Plan Assessment & Plan narrative: 1. Small bowel obstruction, present on admission and active 2. Acute kidney injury with creatinine 1.58, present on admission and improved. 3. Hyperkalemia, present on admission and improved. 4. Leukocytosis, present on admission and active. 5. Abnormal ECG and elevated troponin of 0.033, present on admission and active. 0.103 today. 6. Bruising of the inner thighs and buttocks with a history of anticoagulation, present on admission and active. Plan: -conservative treatment of bowel obstruction with IV fluids and analgesics. -Continue IVF. -KUB -Monitor for chest pain or dyspnea. -we will investigate the history of her bruising with her facility tomorrow. DNR DNI. Anticipate 2 midnights in the hospital, supports inpatient status. She was being treated for a bowel obstruction, acute kidney injury with hyperkalemia, and demand ischemia versus NSTEMI. Time-Based Coding :: [TOTAL MINUTES] spent with patient and on the chart (including review of chart, obtaining history, exam, reviewing outside data, placing orders, documenting exam and treatment plan, and counseling patient) on [DATE]. Quality VTE Deep Vein Thrombosis/Pulmonary Embolism Present on Admission: No
[2025-04-28] MEDS: HEPARIN 5,000 UNIT/ML VIAL 5000 UNIT SUBCUT (08:33)
[2025-04-28 09:23] VITALS: O2SAT 93
--- NOTE | 2025-04-28 10:09 | DIET.CONS ---
Dietary Consultation Note Admission Date: 04/27/2025 16:06 Assessment: 85 y F admitted for SBO. Dietitian screened for MNA. Pt with dementia, EMR reviewed. Per H&P pt started vomiting Thursday, 04/26. Ht: 154.94 cm Wt: 44.4 kg BMI: 18.5 UBW: no recent weight hx, 46.266 kg on 01/15/24 Last BM: 04/28/25 (04/28/25 06:00) MNA: 4 Reymundo Score: 16 Diet: 04/27/25 16:19 NPO Diet Diet Modifications: NPO Type: NPO except for Ice Chips Labs: RBC 6.06 X10^6/uL (4.0-5.2) H 04/27/25 10:20 Hgb 16.5 g/dL (12.0-16.0) H 04/27/25 10:20 Hct 49.9 % (36-46) H 04/27/25 10:20 Creatinine 0.92 mg/dL (0.52-1.04) 04/28/25 05:10 NT-Pro-B Natriuret Pep 3510 pg/mL (<450) H 04/27/25 10:27 Nutrition Diagnosis: BMI underweight for age r/t inadequate oral intakes aeb BMI 18.5 Interventions: -Pt NPO for SBO with plan for conservative treatment, no surgery if fails to improve EER: [id number] kcals (30-35 kcals/kg) 50 g/kg (1g/kg) Monitoring/Evaluations: diet advancement/PO intakes Electronically Signed by: Joellen Smart 04/28/25 10:09 Clinical Dietitian [address] [address]
[2025-04-28 11:00] VITALS: BP 112/62; PULSE 73; TEMP 36.5
--- NOTE | 2025-04-28 13:33 | DI.RAD.S_ITS ---
PROCEDURE: XR KUB INDICATIONS: SBO TECHNIQUE: One view of the abdomen acquired. COMPARISON: None. FINDINGS: Surgical changes and devices: None. Bowel: Bowel gas pattern is normal. Soft tissues: No suspicious abdominal calcifications. Visualized solid organ contours appear normal in size. Bones: No suspicious bony lesions. IMPRESSION: Non-specific bowel gas pattern, no free air seen. Limited quality visualization due to patient motion. Dictated by: Jorge Paige M.D. on 04/28/2025 at 15:52 Approved by: Jorge Paige M.D. on 04/28/2025 at 15:52
[2025-04-28 14:00] VITALS: BP 145/69; PULSE 87; RESP 20; TEMP 36.5; O2SAT 97
[2025-04-28] MEDS: RIVAROXABAN 10 MG TABLET 20 MG PO (14:17)
--- NOTE | 2025-04-28 14:32 | CM.DANOTE ---
Initial DCP Assessment Note Pt is an 85 yo female, resident of [facility] in [place], severe dementia, admitted for management of small bowel obstruction. PCP: Elida Massey Payer: MAICOL/JOSE MIGUEL Reviewed chart, pt discussed w/ provider Dr Gaviria. Placed call to daughter/DPOA Shazia who reports that patient has been living at [facility] for approx a year and half. AF assists with all ADLs. Discussed the bruises in patient's crotch/thigh area that were seen and reported. Daughter has no concern about the care provided at [facility] and suspects the bruises are a combination of patient's easy bruisability, blood thinners, and being sedentary with a pad she wears for incontinence. Shazia would like to get patient back to [facility] P [phone] (Casino Enforcement Agent-[employer]) at discharge. Shazia waiting to see how patient's medical plan of care unfolds before deciding on HH (preference- [facility]) vs Hospice. CM team will plan to follow clinical course closely. MARIO Mendoza Discharge Planning/Care Management CM Discharge Assessment Start: 04/27/25 16:23 Freq: Status: Active Protocol: Document 04/28/25 14:27 EKTA (Rec: 04/28/25 14:32 EKTA Desktop) Discharge Planning Assessment Assigned Discharge MARIO Simon Phlebotomist DPJOSE/Assigned Shazia, daughter/DPOA Designee Name Contact Information [phone] Advance Directives? Yes Advance Directives No on File History Provided By Family Member,Medical Record Prior Living Chcf Arrangements Comment [facility] x year and a half Household Members caregiver Type of Relies on Others transporation used prior to admit Facility Name [facility] Admitted From: Willing to Return to Yes Facility? Independent with ADL No 's Is patient alert and No: Severe Dementia oriented? Needs Assistance Bathing,Grooming,Meal Prep,Toileting,Managing With Medications,Home Chores / Shopping DME Already Rented / FWW / Walker Owned Comment SBA Comment Back to [facility] Barriers to No Discharge Comment Daughter anticipates patient returning to [facility] Discharge Plan Adult Family Home Transportation Family Arrangement Referrals Initiated None needed
[2025-04-28 15:00] VITALS: O2SAT 95
[2025-04-28] MEDS: GABAPENTIN 300 MG CAPSULE PO (21:07)
[2025-04-28 23:00] VITALS: O2SAT 96
[2025-04-29] VITALS (7 sets, daily range): BP systolic 137–138; BP diastolic 67–71; PULSE 63–77; RESP 16; TEMP 36.3–36.9; O2SAT 95–97
[2025-04-29] MEDS: SODIUM CHLORIDE 0.9% 1,000 ML 100 ML IV ×2 (05:22→15:33)
[2025-04-29 05:46] LABS: BUN Creatinine Ratio 26.8 (6-22); Blood Urea Nitrogen 19 mg/dL (7-17); Calcium 7.9 mg/dL (8.4-10.2); Carbon Dioxide 21 mmol/L (22-32); Chloride 109 mmol/L (98-107); Estimated Glomerular Filt Rate > 60 mL/min (>60); Glucose 56 mg/dL (70-99); Potassium 4.6 mmol/L (3.4-5.1); Sodium 137 mmol/L (137-145)
[2025-04-29 05:47] LABS: HEMOLYSIS 100 (0-50)
--- NOTE | 2025-04-29 07:50 | PM.PN.1 ---
Subjective Subjective Interval history: S: She was improved to some degree, she still notes some pain. She he was not vomiting and we will trial a clear liquid diet today. A KUB indicated a resolved bowel obstruction pattern yesterday. Her family we would like her to return to her adult family home, they can likely receive her on April 30. Family also requests a physical therapy assessment. Exam Vital Signs (past 8 hours): - 04/29/25 00:00 04/29/25 06:00 Temperature 98.4 F 97.9 F Pulse Rate 75 63 Respiratory Rate 16 16 Blood Pressure 137/71 Pulse Oximetry 96 97 Oxygen Flow Rate 1 1 Oxygen Delivery Method Nasal Cannula Oxygen Flow Rate 1 Narrative Exam Narrative: NAD, alert and oriented. Fluent speech. Lungs are clear, normal rate and effort. Heart is regular, no murmur gallop or rub. Abdomen is soft, non distended. She is also non-tender in all quadrants. Extremities are free of edema. Objective Labs 04/29/25 08:12 04/29/25 08:12 Labs: Laboratory Results - last 24 hr 04/29/25 05:03 Sodium 137 Potassium 4.6 Chloride 109 H Carbon Dioxide 21 L BUN 19 H Creatinine 0.71 Estimated GFR > 60 BUN/Creatinine Ratio 26.8 H Glucose 56 L Calcium 7.9 L PFSH Social History household members: caregiver Smoking Status: Former smoker alcohol intake: current Assessment & Plan Assessment & Plan narrative: 1. Small bowel obstruction, present on admission and improved. 2. Acute kidney injury with creatinine 1.58, present on admission and improved. 3. Hyperkalemia, present on admission and improved. 4. Leukocytosis, present on admission and active. 5. Abnormal ECG and elevated troponin of 0.033, present on admission and active. 0.103 today. 6. Bruising of the inner thighs and buttocks with a history of anticoagulation, present on admission and active. Plan: -trial clear liquids. Advance diet as tolerated. -discharge back to adult family home on April 30 with home health if she continues to be stable to improved. DNR DNI. Time-Based Coding :: [TOTAL MINUTES] spent with patient and on the chart (including review of chart, obtaining history, exam, reviewing outside data, placing orders, documenting exam and treatment plan, and counseling patient) on [DATE]. Quality VTE Deep Vein Thrombosis/Pulmonary Embolism Present on Admission: No
[2025-04-29 08:27] LABS: Hematocrit 35.3 % (36-46); Hemoglobin 11.5 g/dL (12.0-16.0); Mean Corpuscular HGB Conc 32.6 % (30-36); Mean Corpuscular Hemoglobin 27.4 PG (26-34); Platelet Count 123 X10^3/uL (150-400); Red Blood Cell Count 4.21 X10^6/uL (4.0-5.2); Red Cell Distribution Width 15.1 % (11.6-14.8)
[2025-04-29 08:38] LABS: Blood Urea Nitrogen 18 mg/dL (7-17); Calcium 8.1 mg/dL (8.4-10.2); Carbon Dioxide 19 mmol/L (22-32); Chloride 109 mmol/L (98-107); Estimated Glomerular Filt Rate > 60 mL/min (>60); Glucose 60 mg/dL (70-99); HEMOLYSIS < 15 (0-50); Potassium 3.9 mmol/L (3.4-5.1); Sodium 138 mmol/L (137-145)
[2025-04-29] MEDS: RIVAROXABAN 10 MG TABLET 20 MG PO (10:21)
--- NOTE | 2025-04-29 11:12 | CM.MNRNOTE ---
alert and conversant. Pleasantly confused. Follows commands. takes pills whole. Daughter attentive at bedside. Pt offers no present c/o pain or discomfort. Dr. Gaviria in to see Pt as well as [place] from .
--- NOTE | 2025-04-29 11:42 | PC.NURSE ---
Pt alert, conversant pleasantly confused, interactive not impulsive. Follows commands, offers no overt complaint. Daughter and son in law attentive at bedside.
--- NOTE | 2025-04-29 16:01 | CM.DPNOTE ---
Addendum entered by MARIO Packer 04/29/25 16:09: PRE SALES TECHNICAL CONSULTANT lvm with [facility] P [phone] (Structural Engineer-Solange). no response as of 1599. per dtr Shazia, has been texting Mrya throughout day and Solange is in agreement with plan. PRE SALES TECHNICAL CONSULTANT team to coordinate with Solange more tomorrow. SL Original Note: DCP note PRE SALES TECHNICAL CONSULTANT reviewed EMR per provider, could dc today vs tomorrow to [facility] memory care. Multiple lengthy DCP conversations with dtr shazia in room. pt pleasantly confused. dtr preference is for pt to return to [facility] with [facility] for PT/RN. if pt unable to transfer into POV, preference is for non emergency ambulance. report verbal understanding there may be a bill associated. pt has hospital bed at [facility], they already provide total care for her. PT eval pending for appropriate transfer rec/to assess for mobility. PRE SALES TECHNICAL CONSULTANT emailed referral to Russell at [facility] , Russell reports they likely can accept. completed f2f. order needed. POLST already in chart. PRE SALES TECHNICAL CONSULTANT completed BLS form. scheduled transport with [facility] with [facility] for 1300 on Thursday. placed BLS form/POLST copy in red folder for tomorrow. If pt able to transfer to POV, cancel BLS transport. per nursing, pt had large BM late Sat afternoon, SBO seems to have resolved. P: return [facility] tomorrow [facility] to transport at 1300 (may cancel if able to transport with dtr). [facility] to follow for RN/PT. CM team will continue to follow as needed for DCP coordination MARIO Packer
--- NOTE | 2025-04-29 16:25 | PT.IIE ---
Current Diagnoses Unspecified intestinal obstruction, unspecified as to partial versus complete obstruction (04/27/25) Physical Therapy Inpatient Evaluation/Re-Eval M1 PT/OT-IP Prior Functional Status Start: 04/29/25 17:33 Freq: NEEDED Status: Active Protocol: Document 04/29/25 16:25 DLM (Rec: 04/29/25 17:47 DLM Desktop) Medical Review Prior Functional Status Medical History Yes Reviewed Diet/Fluid Regular Consistency Communication glasses all times, able to communicate her needs, decreased memory, hx dementia Mobility and Gait ambulates with FWW in her facility, unclear how far she can ambulate Activities of Daily assisted with all ADL's at her facility Living and IADL's Social History Household Members caregiver Living Arrangements Adult Family Home Number of Floors ( One Floor Floors) Home Equipment Front Wheel Walker Additional Social Pt is not able to give baseline information. She has a History Comment Daughter involved in her care and has visited at the hospital. She is not present today during therapy. Pt is in a memory care facility and has 24/7 assist available M2 PT-IP Current Condition Start: 04/29/25 17:33 Freq: NEEDED Status: Active Protocol: Document 04/29/25 16:25 DLM (Rec: 04/29/25 17:47 DLM Desktop) Physical Therapy Current Condition Current Condition Evaluation Date 04/29/25 Treatment Diagnosis SBO, impaired gait Onset Date 04/27/25 M3 PT-IP Subjective Start: 04/29/25 17:33 Freq: NEEDED Status: Active Protocol: Document 04/29/25 16:25 DLM (Rec: 04/29/25 17:47 DLM Desktop) Subjective Physical Therapy Visit Type Type Initial Evaluation Visit Start Time 15:50 Visit Stop Time 16:25 Notes 35 min Number of SEAM FELLER Visits 0 Physical Therapy Visit Comments Patient Comments She reports she goes by Bon. She reports she is having a baby. She can report she has abdominal pain. Patient Goals she can not state Therapy Pain Assessment Pain When Pain Assessed During Mobility Pain Present Pain Present Pain Reported Location abdomen Scale Used she can not rate her pain Description Aching Pain Behaviors Moaning,Wincing Pain Management Modification of Treatment,Re-positioning Techniques M4 PT-IP Mobility and Gait Start: 04/29/25 17:33 Freq: NEEDED Status: Active Protocol: Document 04/29/25 16:25 DLM (Rec: 04/29/25 17:47 DLM Desktop) PT-Bed Mobility Assessment Supine to Sit Supine to Sit Minimal Assistance,Bedrails Sit to Supine Sit to Supine Minimal Assistance,Moderate Assistance,Bedrails Scooting Scooting to Edge of Standby Assistance Bed PT-Transfer Assessment Sit to and From Stand Sit to and from Contact Guard Assistance,Minimal Assistance,Use of Stand Upper Extremities Equipment Transfer Assistive Gait Belt,Front Wheeled Walker Device Transfers Transfer Destination Bed Transfer Technique Stand Step Pivot Transfer Ability Level of Assist Contact Guard Assistance,Minimal Assistance Comments Mobility Comments She was able to ambulate around the bed this visit. Seated rest breaks used to manage her pain and fatigue. Pt requested back to bed after activity. She has an external catheter in place. Gait Assessment Gait Gait Assistance Contact Guard Assist,Minimum Assistance Required: Distance (Feet) 10 Assistive Devices Assistive Device Gait Belt,Front Wheeled Walker Gait Deviations General Gait Pattern Decreased Stride Length Factors Limiting Gait Function Factors Limiting Decreased Activity Tolerance Gait Function Comments Gait Comments She had mild difficulty managing the FWW this visit. Unclear if she has a 4WW or FWW at baseline. She uses good UE support on the FWW during gait. PT-Balance Assessment Sitting Balance and Reactions Static Sitting Good Balance Ability Dynamic Sitting Good Balance Ability Standing Balance and Reactions Static Standing Fair Balance Ability Dynamic Standing Fair Balance Ability Device Used FWW M5 PT-IP Objective Assessments Start: 04/29/25 17:33 Freq: NEEDED Status: Active Protocol: Document 04/29/25 16:25 DLM (Rec: 04/29/25 17:47 DLM Desktop) Orientation Orientation/Cognition Level of Alertness Alert Orientation Name Language Function No Deficits Noted Ability Safety Awareness Decreased Safety Awareness Memory Description Short Term Impaired,Mcfp Impaired Comments She can tell me the month of her but not the rest of the date. She does not know her age. She is pleasant and cooperative with care. She is able to follow simple instructions for mobility. Gross Range of Motion Upper Extremity ROM Assessment Within Functional Limits Lower Extremity ROM Assessment Within Functional Limits Strength Upper Extremity Strength Assessment Within Functional Limits Lower Extremity Strength Assessment Bilaterally Impaired Comments Strength Comments generalized decrease associated with her abdominal pain , she can weight bear on her LE's for standing and she can move them with effort in bed. Coordination Assessment Gross Coordination Gross Coordination WNL Sensation Assessment Sensation Gross Sensation Right LE Impaired,Left LE Impaired Sensation Numbness Description Comments Sensation Comments she describes having numbness in her feet when asked Muscle Tone Muscle Tone WNL Yes M6 PT-IP Treatment Start: 04/29/25 17:33 Freq: NEEDED Status: Active Protocol: Document 04/29/25 16:25 DLM (Rec: 04/29/25 17:47 DLM Desktop) Physical Therapy Treatment Education Education Provided Safety M7 PT-IP Assessment and Plan Start: 04/29/25 17:33 Freq: NEEDED Status: Active Protocol: Document 04/29/25 16:25 DLM (Rec: 04/29/25 17:47 DLM Desktop) PT Summary Assessment and Plan Potential Rehabilitation Good Potential Status of Condition Evolving at Evaluation Summary Impairments Pain,Strength,Balance,Sensation,Cognition,Bed Mobility, Transfers,Gait,Activity Tolerance Goals Bed Mobility Goal Standby Assistance Transfer Goal Contact Guard Assistance,Front Wheeled Walker,Four Wheeled Walker Gait Goal Contact Guard Assistance,Front Wheel Walker,Four Wheel Walker Gait Distance 50 feet Days to Meet Goals 5 Frequency of Treatment Frequency Of Once a Day Treatment Treatment Plan Physical Therapy Bed Mobility Training,Transfer Training,Gait Training, Treatment Plan Therapeutic Exercise,Balance Retraining,Discharge Planning,Neuromuscular Re-ed Precautions Other Precautions fall risk, use bed alarm, monitor increased Troponins this admission. Recommendations To Nursing Amount of Assist 1 Person Assist Needed Discharge Recommendations PT Discharge Home with 25/05 Assist Available,Home Health Recommendations Transportation Needs Private Vehicle at Discharge - PT assist 1
[2025-04-29 17:15] LABS: Add Manual Diff / Slide Review NO; Basophils Absolute Auto 100 /uL (0-100); Basophils Percent Auto 0.7 % (0-2); Eosinophils Absolute Auto 100 /uL (0-450); Eosinophils Percent Auto 1.2 % (2-4); Hematocrit 36.5 % (36-46); Hemoglobin 11.7 g/dL (12.0-16.0); Lymphocytes Absolute Auto 1300 /uL (1100-4500); Lymphocytes Percent Auto 13.4 % (25-40); Mean Corpuscular HGB Conc 32.2 % (30-36); Mean Corpuscular Hemoglobin 26.9 PG (26-34); Mean Corpuscular Volume 83.5 fL (80-100); Monocytes Absolute Auto 900 /uL (0-900); Monocytes Percent Auto 9.5 % (3-14); Neutrophils Absolute Auto 7000 /uL (1500-7000); Neutrophils Percent Auto 75.2 % (50-75); Platelet Count 141 X10^3/uL (150-400); Red Blood Cell Count 4.37 X10^6/uL (4.0-5.2); Red Cell Distribution Width 14.6 % (11.6-14.8); White Blood Cell Count 9.3 X10^3/uL (4.5-11.0)
[2025-04-29] MEDS: GABAPENTIN 300 MG CAPSULE PO (20:36)
[2025-04-30 00:02] VITALS: BP 147/75; PULSE 71; RESP 16; TEMP 37.2; O2SAT 96
[2025-04-30] MEDS: SODIUM CHLORIDE 0.9% 1,000 ML 100 ML IV (00:39)
[2025-04-30 06:55] VITALS: BP 168/85; PULSE 80; RESP 16; TEMP 36.1; O2SAT 95
[2025-04-30 07:00] VITALS: O2SAT 95
[2025-04-30 08:00] VITALS: BP 150/82; PULSE 73; RESP 18; TEMP 36.3; O2SAT 95
[2025-04-30 08:35] LABS: BUN Creatinine Ratio 16.4 (6-22); Blood Urea Nitrogen 9 mg/dL (7-17); Carbon Dioxide 21 mmol/L (22-32); Chloride 106 mmol/L (98-107); Estimated Glomerular Filt Rate > 60 mL/min (>60)
[2025-04-30 08:45] LABS: Calcium 7.8 mg/dL (8.4-10.2); Glucose 77 mg/dL (70-99); HEMOLYSIS 23 (0-50); Potassium 3.3 mmol/L (3.4-5.1); Sodium 135 mmol/L (137-145)
[2025-04-30] MEDS: RIVAROXABAN 10 MG TABLET 20 MG PO (09:23)
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
--- NOTE | 2025-04-30 10:59 | CM.DPC ---
DCP Discharge [facility]: Per MD, pt had large bm last night and SBO seems to be resolving and will slowly advance her diet and medically stable to d/c back to [facility] today. Per PT later yesterday afternoon, pt was able to ambulate with FWW in room but did fatigue easily but recommending return to [facility] with assist and private vehicle. Talked with RN and CAMERA PERSON and they are in agreement to get pt up to bedside chair to confirm she is still ambulatory today and they kindly got pt up with Dtr in room. Called Solange at [facility] [phone] and updated her on pt discharge today and she confirms they are ready and willing to accept pt back today and do not need clinicals faxed just Dtr to bring the discharge instructions and currently no new meds. CHUCK met bedside with Dtr and she confirms she remains agreeable with pt discharge back to [facility] today and discussed possible options of transport (BLS vs cabulance vs POV) and pt in agreement that she would like to transport pt back and will confirm with Solange that they have a w/c to use from vehicle into their facility due to pt's fatigue. Dtr agreeable with [facility] RN/PT for ongoing monitoring and strengthening. Updated RN. Called [facility] and cancelled 1300 transport as pt going by POV. CHUCK updated [facility] on pt discharge today and faxed F2F, HH orders, and d/c summary. Plan: Patient to d/c back to [facility] today via Dtr's POV and new [facility] to follow after discharge. MARIO Garrett
--- NOTE | 2025-04-30 11:45 | PC.NURSE ---
Reviewed discharge summary with pt and dtr at bedside. Discussed diet and activity. IVs removed. Pt dressed with assistance, then exited via w/c with BUILDING OFFICIAL and daughter to private vehicle.
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
== END 2025-04-30 11:43 | disposition home health service (06) | DRG 389 ==
LOC: ED 14:58 → AC 16:07
PROVIDERS: Admitting Provider Hospitalist; Emergency Provider Emergency Medicine; PCP Internal Medicine; Referring Provider Emergency Medicine; Visit Provider Hospitalist
DX: K56.601 Complete intestinal obstruction, unspecified as to cause (principal); I24.89 Other forms of acute ischemic heart disease; N17.9 Acute kidney failure, unspecified; F03.90 Unspecified dementia, unspecified severity, without behavioral disturbance, psychotic disturbance, mood disturbance, and anxiety; E87.5 Hyperkalemia; E86.0 Dehydration; S70.12XA Contusion of left thigh, initial encounter; S70.11XA Contusion of right thigh, initial encounter; S30.0XXA Contusion of lower back and pelvis, initial encounter; X58.XXXA Exposure to other specified factors, initial encounter; Z79.01 Long term (current) use of anticoagulants; Z66 Do not resuscitate; Z87.891 Personal history of nicotine dependence
CPT/HCPCS: 36415; 74018; 74176; 80048; 80053; 81003; 81015; 83690; 83880; 84484; 85025; 85027; 93005; 94760; 96361; 96365; 96375; 97162; 99284; J1171; J1644; J2405; J2543

== ENCOUNTER → 2025-08-03 10:32 | Outpatient (CLI) | payer MEDICARE, SELFPAY ==
[2025-04-27 17:27] VITALS: BMI 18.5
== END ==
PROVIDERS: Family Provider Internal Medicine; PCP Internal Medicine; Referring Provider Internal Medicine; Visit Provider Surgery
DX: I96 Gangrene, not elsewhere classified (principal); L89.620 Pressure ulcer of left heel, unstageable; G30.9 Alzheimer's disease, unspecified; Z74.09 Other reduced mobility; Z87.891 Personal history of nicotine dependence; Z79.01 Long term (current) use of anticoagulants; Z86.718 Personal history of other venous thrombosis and embolism
CPT/HCPCS: 97597; 99203; 99213

== ENCOUNTER → 2025-08-03 11:29 | Outpatient (CLI) | payer MEDICARE, SELFPAY ==
[2025-04-27 17:27] VITALS: BMI 18.5
--- NOTE | 2025-08-03 11:31 | DI.RAD.S_ITS ---
PROCEDURE: XR FOOT LT 2V INDICATIONS: eval for osteo TECHNIQUE: 3 views of the foot were acquired. COMPARISON: None. FINDINGS: Bones: Moderate diffuse osteoporosis appreciated. An 8 mm erosion of the dorsal 1st proximal phalangeal base is seen on lateral view. This could indicate a focus of osteomyelitis. Small exostosis projects from dorsal cortex of the talar neck. Joints: Severe degeneration throughout the midfoot and moderate degeneration 1st MTP and all interphalangeal joints appreciated . Soft tissues: No soft tissue abnormality. IMPRESSION: 8 mm erosive lesion in the dorsal 1st proximal phalangeal base. If there is correlating point tenderness in this particular region this may represent a focus of osteomyelitis. Consider MRI for more specific evaluation Other chronic findings as described. Dictated by: Rhys Booth M.D. on 08/04/2025 at 11:24 Approved by: Rhsy Booth M.D. on 08/04/2025 at 11:27
== END ==
PROVIDERS: Family Provider Internal Medicine; PCP Internal Medicine; Referring Provider Surgery; Visit Provider Surgery
DX: S91.302A Unspecified open wound, left foot, initial encounter (principal); M19.072 Primary osteoarthritis, left ankle and foot; M81.0 Age-related osteoporosis without current pathological fracture; M85.872 Other specified disorders of bone density and structure, left ankle and foot
CPT/HCPCS: 73620

== ENCOUNTER → 2025-08-10 10:27 | Outpatient (CLI) | payer MEDICARE, SELFPAY ==
[2025-04-27 17:27] VITALS: BMI 18.5
== END ==
LOC: WC 10:28
PROVIDERS: Family Provider Internal Medicine; PCP Internal Medicine; Referring Provider Internal Medicine; Visit Provider Surgery
DX: I96 Gangrene, not elsewhere classified (principal); L89.620 Pressure ulcer of left heel, unstageable; R23.3 Spontaneous ecchymoses; G30.9 Alzheimer's disease, unspecified; F02.80 Dementia in other diseases classified elsewhere, unspecified severity, without behavioral disturbance, psychotic disturbance, mood disturbance, and anxiety; Z74.09 Other reduced mobility; Z87.891 Personal history of nicotine dependence; Z79.01 Long term (current) use of anticoagulants
CPT/HCPCS: 99213

== ENCOUNTER → 2025-08-15 12:33 | Outpatient (CLI) | payer MEDICARE, SELFPAY ==
[2025-04-27 17:27] VITALS: BMI 18.5
--- NOTE | 2025-08-15 12:35 | DI.US.S_ITS ---
PROCEDURE: US ARTERIAL DUPLEX LE BI INDICATIONS: BONITA SHOWING PAD AND NON-HEALING LEFT WOUND TECHNIQUE: Color and pulse Doppler interrogation was performed of both lower extremity arterial systems, with image documentation. COMPARISON: None. FINDINGS: Right lower extremity: Common femoral artery: 42 cm/sec, with biphasic flow. Deep femoral artery: 49 cm/sec, with biphasic flow. Proximal superficial femoral artery: 792 cm/sec, with biphasic flow. Mid superficial femoral artery: 38 cm/sec, with monophasic flow. Distal superficial femoral artery: 30 cm/sec, with monophasic flow. Popliteal artery: 21 cm/sec, with biphasic flow. Posterior tibial artery: 12 cm/sec, with monophasic flow. Anterior tibial artery/dorsalis pedis: 23 cm/sec, with monophasic flow. 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 Left lower extremity: Common femoral artery: 142 cm/sec, with triphasic flow. Deep femoral artery: 90 cm/sec, with triphasic flow. Proximal superficial femoral artery: 244 cm/sec, with biphasic flow. Mid superficial femoral artery: 91 cm/sec, with biphasic flow. Distal superficial femoral artery: 62 cm/sec, with aphasic flow. Popliteal artery: 133 cm/sec, with biphasic flow. Posterior tibial artery: 56 cm/sec, with biphasic flow. Anterior tibial artery/dorsalis pedis: 47 cm/sec, with biphasic flow. Mancia-scale imaging description: Suspect probable hemodynamically significant stenosis of the proximal left superficial femoral artery with velocity increase present. A stenosis of greater than 50% is suspected. Normal waveforms throughout. IMPRESSION: 1. On the right, there is a severe origin stenosis of the right SFA, hemodynamically significant, resulting in monophasic waveforms distal to this stenosis. 2. On the left, there may be a hemodynamically significant proximal SFA stenosis. Dictated by: Mario iQu M.D. on 08/17/2025 at 13:20 Approved by: Mario Qiu M.D. on 08/17/2025 at 13:24
== END ==
LOC: US 12:34
PROVIDERS: Family Provider Internal Medicine; PCP Internal Medicine; Referring Provider Surgery; Visit Provider Surgery
DX: L89.620 Pressure ulcer of left heel, unstageable (principal); I70.201 Unspecified atherosclerosis of native arteries of extremities, right leg
CPT/HCPCS: 93925

== ENCOUNTER → 2025-08-17 12:00 | Outpatient (CLI) | payer MEDICARE, SELFPAY ==
[2025-04-27 17:27] VITALS: BMI 18.5
== END ==
LOC: WC 12:01
PROVIDERS: Family Provider Internal Medicine; PCP Internal Medicine; Referring Provider Internal Medicine; Visit Provider Physician Assistant
DX: L89.620 Pressure ulcer of left heel, unstageable (principal); I70.202 Unspecified atherosclerosis of native arteries of extremities, left leg; Z79.01 Long term (current) use of anticoagulants
CPT/HCPCS: 99213

== ENCOUNTER → 2025-08-31 10:15 | Outpatient (CLI) | payer MEDICARE, SELFPAY ==
[2025-04-27 17:27] VITALS: BMI 18.5
== END ==
LOC: WC 10:17
PROVIDERS: Family Provider Internal Medicine; PCP Internal Medicine; Referring Provider Internal Medicine; Visit Provider Surgery
DX: I96 Gangrene, not elsewhere classified (principal); L89.620 Pressure ulcer of left heel, unstageable; R23.3 Spontaneous ecchymoses; G30.9 Alzheimer's disease, unspecified; I73.9 Peripheral vascular disease, unspecified; Z79.01 Long term (current) use of anticoagulants; Z87.891 Personal history of nicotine dependence; Z74.09 Other reduced mobility; Z86.718 Personal history of other venous thrombosis and embolism
CPT/HCPCS: 99213

== ENCOUNTER → 2025-09-21 10:38 | Outpatient (CLI) | payer MEDICARE, SELFPAY ==
[2025-04-27 17:27] VITALS: BMI 18.5
== END ==
LOC: WC 10:39
PROVIDERS: Family Provider Internal Medicine; PCP Internal Medicine; Referring Provider Internal Medicine; Visit Provider Surgery
DX: L89.620 Pressure ulcer of left heel, unstageable (principal); R54 Age-related physical debility; G30.9 Alzheimer's disease, unspecified
CPT/HCPCS: 99213